=== PATIENT | female | born 1970 | race Hispanic/Latino ===

== ENCOUNTER 2018-10-06 08:45 | Outpatient (CLI) | payer BC ==
--- NOTE | 2018-10-06 12:14 | NM ---
NUCLEAR MEDICINE HIDA SCAN: HISTORY: Previous cholecystectomy. Evaluate for possible delayed drainage from the common bile duct. COMPARISON: None. CORRELATION: CT chest, abdomen, and pelvis from 07/06/2011. TECHNIQUE: The patient was administered 5.1 millicuries of technetium 99m mebrofenin intravenously. FINDINGS: Appropriate uptake of radiotracer by the hepatic parenchyma. There is localization of radiotracer in to the intrahepatic biliary system as early as 8 minutes. There is passage of radiotracer from the c ommon bile duct into the small bowel by the 17 minute image. There is no evidence of delay. IMPRESSION: No evidence of delay in passage of radiotracer from the common bile duct and small bowel. POS: [facility]
== END 2018-10-06 08:46 | disposition home or self-care (01) ==
LOC: NM 08:45
PROVIDERS: ATTEND Internal Medicine
DX: R10.11 Right upper quadrant pain (principal)
CPT/HCPCS: 78226; A9537